=== PATIENT | male | born 1970 | race Caucasian/White ===

== ENCOUNTER 2017-03-11 16:41 | Inpatient (IN) ==
[2017-03-11 18:23] LABS: MANUAL DIFF NEEDED? NO
[2017-03-11 18:27] LABS: BASO% 0.6 % (0.0-0.8); EOS# 0.34 X1000 (0.0-0.7); EOS% 3.4 % (0.0-10.0); HEMATOCRIT 43.5 % (42.0-52.0); HEMOGLOBIN 14.4 g/dL (14.0-18.0); IMM GRAN# 0.12 X1000 (0.0-0.04); IMM GRAN% 1.2 % (0.0-0.5); LYMPH# 2.44 X1000 (1.2-3.4); LYMPH% 24.1 % (20.5-51.1); MCHC 33.1 g/dL (33-37); MCV 87.7 FL (81-99); MONO# 0.64 X1000 (0.11-0.59); MONO% 6.3 % (1.7-9.3); MPV 9.5 FL (7.4-10.4); NEUT% 64.4 % (42.2-75.2); PLT 523 X1000 (130-400); RBC 4.96 XMIL (4.7-6.1)
[2017-03-11 18:55] LABS: AGAP 11; ALBUMIN 3.2 g/dL (3.5-5.0); ALKALINE PHOSPHATASE 203 U/L (32-122); BUN 16 mg/dL (8-22); CALCIUM 9.1 mg/dL (8.8-10.2); CHLORIDE 97 mmol/L (98-107); COSMO 280; GOT 18 U/L (10-34); GPT 20 U/L (10-44); POTASSIUM 4.5 mmol/L (3.5-5.1); SODIUM 134 mmol/L (136-145); TCO2 26 mmol/L (25-35); TOTAL BILIRUBIN 0.21 mg/dL (0.20-1.00); TOTAL PROTEIN 7.2 g/dL (6.3-8.3)
[2017-03-11] MEDS: VANCOMYCIN 2 GM in NS 500 ML IV SCH (22:30)
[2017-03-12] MEDS: VANCOMYCIN 2 GM in NS 500 ML IV SCH ×2 (08:02→21:19)
[2017-03-12] MEDS ORDERED: VANCOMYCIN IV PER PHARMACY MISC SCH (10:00)
[2017-03-12] MEDS ORDERED: REGLAN ONE (12:28)
[2017-03-12] MEDS ORDERED: PEPCID ONE (12:28)
[2017-03-12] MEDS ORDERED: DIPRIVAN 1% ONE (12:55)
[2017-03-12] MEDS ORDERED: FENTANYL ONE (12:55)
[2017-03-12] MEDS ORDERED: QUELICIN (DOSE) ONE (12:57)
[2017-03-12] MEDS ORDERED: BACITRACIN ONE (13:31)
[2017-03-12] MEDS ORDERED: SODIUM CHLORIDE 0.9% ONE (13:31)
[2017-03-12] MEDS: MORPHINE ONE ×2 (14:13→14:18)
[2017-03-12] MEDS: NORCO-10 PO PRN ×2 (16:26→21:20)
[2017-03-12] MEDS: PERIDEX MT SCH (21:20)
--- NOTE | 2017-03-12 21:41 | OPERATIVE NOTE ---
PROCEDURE DATE: 03/12/2017 PREOPERATIVE DIAGNOSIS: Right thigh abscess. POSTOP DIAGNOSIS: Right thigh abscess. PROCEDURE: Incision and drainage of right thigh abscess. SURGEON: Kalin Cannon MD. ANESTHESIA: General. ESTIMATED BLOOD LOSS: 50 mL. COMPLICATIONS: None apparent. SPECIMENS: Purulent fluid for culture and sensitivity. FINDINGS: The patient had a large area of induration with central necrosis in his right thigh. There was tunneling down to the deep subcutaneous tissue in the prefascial tissues. There was a plane between the subcutaneous fat and fascia of the muscles however I only encountered a small amount of purulent fluid. This was cultured. I sharply incised all the indurated area for the width of the underlying subcutaneous space that had been developed by the infection. I then suture ligated several vascular branches in the subcutaneous tissues with 3-0 Vicryl. Cautery was used for hemostasis. The wound was copiously irrigated with saline and bacitracin and then the wound was packed with Betadine moistened gauze. There were no apparent complications. cc: Kalin Cannon MD
[2017-03-13] MEDS: MORPHINE ONE (03:32)
[2017-03-13 05:59] LABS: MANUAL DIFF NEEDED? NO
[2017-03-13 06:07] LABS: BASO% 0.6 % (0.0-0.8); EOS# 0.35 X1000 (0.0-0.7); EOS% 3.3 % (0.0-10.0); HEMATOCRIT 40.3 % (42.0-52.0); HEMOGLOBIN 12.9 g/dL (14.0-18.0); IMM GRAN# 0.08 X1000 (0.0-0.04); IMM GRAN% 0.8 % (0.0-0.5); LYMPH# 2.31 X1000 (1.2-3.4); LYMPH% 21.8 % (20.5-51.1); MCV 90.6 FL (81-99); MONO# 1.05 X1000 (0.11-0.59); MONO% 9.9 % (1.7-9.3); MPV 9.1 FL (7.4-10.4); NEUT% 63.6 % (42.2-75.2); PLT 494 X1000 (130-400); RBC 4.45 XMIL (4.7-6.1)
[2017-03-13 06:40] LABS: AGAP 9; BUN 10 mg/dL (8-22); CHLORIDE 100 mmol/L (98-107); COSMO 284; POTASSIUM 4.8 mmol/L (3.5-5.1); SODIUM 138 mmol/L (136-145); TCO2 29 mmol/L (25-35)
[2017-03-13] MEDS: VANCOMYCIN 2 GM in NS 500 ML IV SCH (09:06)
[2017-03-13] MEDS: PERIDEX MT SCH ×2 (09:06→20:52)
[2017-03-13] MEDS: NORCO-10 PO PRN ×2 (09:37→20:46)
--- NOTE | 2017-03-13 11:41 | PROGRESS NOTE ---
DATE: 03/13/2017 SUBJECTIVE: The patient is now postop day 1 from incision and drainage of a right thigh abscess per Dr. Cannon. I removed the packing from the wound today. It appears to be clean without any ongoing infection or undrained purulence. The wound was re-dressed. He remains on IV vancomycin. Overall, I think he is doing well. He is on a regular diet. He lives in a travel home at this time and may be a social issue at discharge. OBJECTIVE: His heart rate is 65, blood pressure 125/83 and O2 saturation 99%. He is afebrile. PLAN: We are going to start Lovenox. Continue vancomycin for now. Increase his activity. Continue a regular diet and work to get him home. cc: MD Kalin Pina MD
[2017-03-13] MEDS: VANCOMYCIN 1,750 MG in NS 250 ML IV SCH (20:41)
[2017-03-14] MEDS ORDERED: LOVENOX SUBQ SCH (06:00)
[2017-03-14] MEDS: VANCOMYCIN 1,750 MG in NS 250 ML IV SCH (09:22)
[2017-03-14] MEDS: PERIDEX MT SCH (09:22)
[2017-03-14] MEDS ORDERED: FLUZONE QUAD 2017-2018 SYRINGE IM ONE (11:57)
[2017-03-14 12:00] VITALS: BP 121/62
--- NOTE | 2017-03-14 18:34 | DISCHARGE SUMMARY ---
ADMISSION DATE: 03/11/2017 DISCHARGE DATE: 03/14/2017 ADMITTING DIAGNOSIS: Soft tissue abscess, medial right thigh. DISCHARGE DIAGNOSIS: Soft tissue abscess, medial right thigh, group B strep. DISCHARGE DIET: Regular. DISCHARGE DISPOSITION: He will return to our outpatient office later this week for wound check. DISCHARGE DISABILITY: Full. DISCHARGE MEDICATIONS: Are none. HOSPITAL COURSE: Mr. Rober Resendiz is a 47-year-old overweight white male who is a patient Dr. Kalin Cannon. He was admitted on 03/12/2017 because of an infection involving his medial proximal right thigh. He underwent incision and drainage of this soft tissue abscess on 03/12/2017. The wound was packed open and then he was hospitalized and placed on IV vancomycin. On postop day 1 I removed the packing and I cleansed his wound and it was redressed. On postop day 2 the wound appears to be clean without any ongoing drainage or evidence of cellulitis. I discussed wound care with him. He does live in a mobile travel home. The water available for shower is minimal. We discussed him showering prior to discharge and having his wound redressed. He will get 1 last dose of vancomycin. I will not send him home on any p.o. antibiotics. He will return to our outpatient offices later this week for wound check. He will be given wound supplies prior to discharge. He knows to contact us with any problems with his wounds such as increased drainage, swelling, redness or increasing pain. cc: MD Kalin Pina MD
== END 2017-03-14 15:06 | disposition home or self-care (01) ==
LOC: 4N 16:41
PROVIDERS: ADMIT Surgery; ATTEND Surgery